=== PATIENT | female | born 1990 | race American Indian/Alaskan Native ===

== ENCOUNTER 2016-10-25 14:17 | Emergency (ER) | payer SELFPAY ==
[2016-10-25 14:36] VITALS: BP 127/80
[2016-10-25] MEDS ORDERED: diphenhydrAMINE 50 MG/ML SDV IM ONE (15:18)
[2016-10-25] MEDS ORDERED: Ondansetron 4 MG Tab.DIS PO ONE (15:18)
[2016-10-25] MEDS ORDERED: Ketorolac 60 MG/2 ML SDV IM ONE (15:18)
[2016-10-25] MEDS ORDERED: Haloperidol Lactate 5 MG/ML SDV IM ONE (15:18)
--- NOTE | 2016-10-25 15:29 | EDM.PDOC ---
ED HPI GENERAL MEDICAL PROBLEM - General Chief Complaint: Headache Stated Complaint: FEVER Time Seen by Provider: 10/25/16 15:02 Source of Information: Reports: Patient History Limitations: Reports: No Limitations - History of Present Illness INITIAL COMMENTS - FREE TEXT/NARRATIVE: Patient is a 26 y/o female who presents to the E.D. c/o of bitemporal headache that started two days ago. States the headache is similar to previous migraine headache. Its currently rated a 10/10. Has felt warm with the headache. States she arrived to [place] to see her boyfriend three days ago from [place]. Denies recent trauma to head, worst headache of her life, n/v, sob, cp, n/t, abdominal pain, ear pain, sinus congestion, cough, sore throat,dysuria, diarrhea, or weakness, alcohol use, or recreational drug use. She denies being since she had a tubal ligation. She does have a past medical history of headaches and is currently on no medications other than [id number]. Treatments BIT SHAVER: Reports: Acetaminophen Other Treatments BIT SHAVER: ibuprofen Headache Pain Score (Numeric/FACES): 10 - Related Data Allergies Allergy/AdvReac Type Severity Reaction Status Date / Time No Known Allergies Allergy Verified 10/25/16 15:35 Home Meds: Home Meds . [No Known Home Meds] 10/25/16 [History] Past Medical History - Past Health History Medical/Surgical History: Denies Medical/Surgical History Social & Family History - Tobacco Use Smoking Status *Q: Never Smoker - Caffeine Use Caffeine Use: Reports: None - Recreational Drug Use Recreational Drug Use: Yes Drug Use in Last 12 Months: Yes Recreational Drug Type: Reports: Methamphetamine Other Recreational Drug Type: pt states she hasnt used in the past 5 months ED ROS GENERAL - Review of Systems Review Of Systems: ROS reveals no pertinent complaints other than HPI. - Physical Exam Exam: See Below Exam Limited By: No Limitations General Appearance: Alert, WD/WN, Mild Distress Eye Exam: Bilateral Eye: EOMI, PERRL Ears: Normal External Exam, Normal Canal, Hearing Grossly Normal Nose: Normal Inspection Throat/Mouth: Normal Inspection, Normal Oropharynx, Normal Voice, No Airway Compromise Head Exam: Atraumatic, Normocephalic Neck: Normal Inspection, Supple, Non-Tender, Full Range of Motion Respiratory/Chest: No Respiratory Distress, Lungs Clear, Normal Breath Sounds, No Accessory Muscle Use, Chest Non-Tender Cardiovascular: Normal Peripheral Pulses, Regular Rate, Rhythm, No Murmur GI/Abdominal: Normal Bowel Sounds, Soft, Non-Tender, No Organomegaly, No Distention Neuro Exam (Abbreviated): Alert, Oriented, CN II-XII Intact, Normal Cognition, No Motor/Sensory Deficits, Other (cerebellar function intact. No weakness discrepanciesto upper and lower extremities. No facial droopor slurred speech noted.) Back Exam: Normal Inspection Extremities: Normal Inspection, Non-Tender, No Pedal Edema Psychiatric: Normal Affect, Normal Mood Skin Exam: Warm, Dry, Intact, Normal Color, No Rash Course - Vital Signs Last Recorded V/S: Last Vital Signs Temp 98.0 F 10/25/16 14:32 Pulse 100 10/25/16 14:32 Resp 16 10/25/16 14:32 BP 127/80 10/25/16 14:32 Pulse Ox 97 10/25/16 14:32 - Orders/Labs/Meds Meds: Medications Discontinued Medications Generic Name Dose Route Start Last Admin Trade Name Mary Ann PRN Reason Stop Dose Admin Diphenhydramine HCl 50 mg 10/25/16 15:18 10/25/16 15:39 Benadryl IM 10/25/16 15:19 50 mg ONETIME ONE Administration Haloperidol Lactate 7.5 mg 10/25/16 15:18 10/25/16 15:40 Haldol IM 10/25/16 15:19 7.5 mg ONETIME ONE Administration Ketorolac Tromethamine 60 mg 10/25/16 15:18 10/25/16 15:37 Toradol IM 10/25/16 15:19 60 mg ONETIME ONE Administration Ondansetron HCl 4 mg 10/25/16 15:18 10/25/16 15:36 Zofran Odt PO 10/25/16 15:19 4 mg ONETIME ONE Administration - Re-Assessments/Exams Free Text/Narrative Re-Assessment/Exam: Examination did not elicit any concerning findings. Neurological exam was completely normal. Believe headache to be a tension-type headache with signs and symptoms present. Ordered Haldol 7.5 mg IM, Benadryl 50 mg IM, Toradol 60 mg IM, and Zofran 4 mg ODT. 10/25/16 16:42 on reevaluation patient's headache has decreased significantly. Currently a 5 out of 10. She is ready to be discharged home. Discharge instructions as documented. Departure - Departure Time of Disposition: 16:43 Disposition: Home, Self-Care 01 Condition: Good Clinical Impression: Acute tension headache Qualifiers: Intractability: not intractable Qualified Code(s): G44.209 - Tension-type headache, unspecified, not intractable - Discharge Information Instructions: General Headache Without Cause, [id number] Forms: ED Department Discharge Additional Instructions: Headache currently experiencing is a tension headache. Continue taking ibuprofen 600 mg every 6 hours and Tylenol 650 mg every 6 hours in alternating fashion. Push the fluids. Ensure adequate rest. Suggest going home this evening and finding a dark room to sleep in with no distractions. No driving this evening since receiving a sedative medication while in the ED. Follow-up with your PCP as needed. Return to the ED for any new or worsening symptoms.
== END 2016-10-25 16:56 | disposition home or self-care (01) ==
LOC: JD.ED 14:17
DX: G44.209 Tension-type headache, unspecified, not intractable (principal)
CPT/HCPCS: 96372; 99284; A9270; J1200; J1630; J1885; 99283

== ENCOUNTER 2017-01-26 09:43 | Emergency (ER) | payer SELFPAY ==
[2017-01-26 09:57] VITALS: BP 134/87
--- NOTE | 2017-01-26 10:19 | EDM.PDOC ---
ED HPI GENERAL MEDICAL PROBLEM - General Chief Complaint: Cardiovascular Problem Stated Complaint: CHEST PAIN Time Seen by Provider: 01/26/17 09:50 Source of Information: Reports: Patient, RN Notes Reviewed History Limitations: Reports: No Limitations - History of Present Illness INITIAL COMMENTS - FREE TEXT/NARRATIVE: The patient states that she took an [id number] sleep aid (she does not know the name of it) last night around 21:00. She states that she woke around 22:00 with a sensation of her heart pounding and shortness of breath. She also reports retrosternal chest pain, although she has been experiencing this for the past 8 months, and it was no different last night. She denied having lightheadedness, tingling or numbness. The palpitations persisted for about 10 minutes before resolving, and have not recurred since. The patient states that she has had similar symptoms in the past, particularly if she takes anything that "affects my heart", such as various medications, Coca -Cola, etc. 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 Here in the ED, the patient's oxygen saturation is noted to be 100% on room air. She reports feeling anxious and dyspneic. The patient states that she recently moved here from [place], and does not have a PCP. - Related Data Allergies Allergy/AdvReac Type Severity Reaction Status Date / Time No Known Allergies Allergy Verified 01/26/17 09:51 Home Meds: Home Meds . 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: Psychiatric History: Reports: Addiction (methamphetamine), Anxiety (untreated), Depression (untreated) Endocrine/Metabolic History: Reports: Obesity/BMI 30+ - Past Surgical History GI Surgical History: Reports: Appendectomy Female Surgical History: Reports: Tubal Ligation Social & Family History - Tobacco Use Smoking Status *Q: Never Smoker Second Hand Smoke Exposure: No - Caffeine Use Caffeine Use: Reports: None - Alcohol Use Alcohol Use History: Yes Alcohol Use Frequency: Socially - Recreational Drug Use Recreational Drug Use: Yes Drug Use in Last 12 Months: Yes Recreational Drug Type: Reports: Methamphetamine (last around Apr 2016) Other Recreational Drug Type: pt states she hasnt used in the past 5 months - Living Situation & Occupation Living situation: Reports: Single (engaged), with Significant Other (Fiance), with Family (10-year-old child) Occupation: Employed ([employer]) ED ROS GENERAL - Review of Systems Review Of Systems: See Below Constitutional: Reports: Chills HEENT: Reports: No Symptoms Respiratory: Reports: Shortness of Breath Cardiovascular: Reports: Chest Pain (as per the HPI) Endocrine: Reports: No Symptoms GI/Abdominal: Reports: No Symptoms : Reports: No Symptoms Musculoskeletal: Reports: No Symptoms Skin: Reports: No Symptoms Neurological: Reports: No Symptoms Psychiatric: Reports: Anxiety Hematologic/Lymphatic: Reports: No Symptoms Immunologic: Reports: No Symptoms ED EXAM, GENERAL - Physical Exam Exam: See Below Exam Limited By: No Limitations General Appearance: Alert, WD/WN, Anxious Eye Exam: Bilateral Eye: Normal Inspection Ears: Normal External Exam, Hearing Grossly Normal Nose: Normal Inspection, No Blood Throat/Mouth: Normal Inspection, Normal Lips, Normal Voice, No Airway Compromise Head: Atraumatic, Normocephalic Neck: Normal Inspection, Full Range of Motion Respiratory/Chest: No Respiratory Distress, Lungs Clear, Normal Breath Sounds, No Accessory Muscle Use Cardiovascular: Normal Peripheral Pulses, Regular Rate, Rhythm, No Gallop, No JVD, No Murmur, No Rub Peripheral Pulses: 4+: Radial (L), Radial (R) GI/Abdominal: Normal Bowel Sounds, Soft, Non-Tender, No Organomegaly, No Distention, No Abnormal Bruit, No Mass, Other (Obese) (Female) Exam: Deferred Rectal (Female) Exam: Deferred Back Exam: Normal Inspection, Full Range of Motion, NT Extremities: Normal Inspection, Normal Range of Motion, No Pedal Edema, Normal Capillary Refill Neurological: Alert, Oriented, Normal Cognition, No Motor/Sensory Deficits Psychiatric: Anxious Skin Exam: Warm, Dry, Intact, Normal Color, No Rash EKG INTERPRETATION EKG Date: 01/26/17 Time: 10:51 Rhythm: NSR Rate (Beats/Min): 81 [place]: Normal P-Wave: Present QRS: Normal ST-T: Normal QT: Normal Comparison: NA - No Prior EKG Course - Vital Signs Last Recorded V/S: Last Vital Signs Temp 37.1 C 01/26/17 09:51 Pulse 97 01/26/17 09:51 Resp 13 01/26/17 09:51 BP 134/87 01/26/17 09:51 Pulse Ox 100 01/26/17 09:51 - Orders/Labs/Meds Labs: Laboratory Tests 01/26/17 01/26/17 01/26/17 Range/Units 10:12 10:45 10:45 WBC 6.64 (3.98-10.04) K/mm3 RBC 4.83 (3.98-5.22) M/mm3 Hgb 13.9 (11.2-15.7) gm/L Hct 41.1 (34.1-44.9) % MCV 85.1 (79.4-94.8) fl MCH 28.8 (25.6-32.2) pg MCHC 33.8 (32.2-35.5) g/dl RDW Std Deviation 40.5 (36.4-46.3) fL Plt Count 367 (182-369) K/mm3 MPV 9.8 (9.4-12.3) fl Neutrophils % (Manual) 68 H (40-60) % Band Neutrophils % 1 (0-10) % Lymphocytes % (Manual) 27 (20-40) % Atypical Lymphs % 0 % Monocytes % (Manual) 2 (2-10) % Eosinophils % (Manual) 2 (0.7-5.8) % Basophils % (Manual) 0 L (0.1-1.2) Platelet Estimate Adequate RBC Morph Comment Normal PT 11.0 (8.0-13.0) SECONDS INR 1.01 APTT 30 (22-36) SECONDS D-Dimer, Quantitative 0.32 (0.19-0.59) mg/L Puncture Site Rt radial ABG pH 7.40 (7.35-7.45) ABG pCO2 35.2 (35.0-45.0) mmHg ABG pO2 64.0 L (80.0-100.0) mmHg ABG HCO3 21.3 L (22.0-26.0) meq/L ABG O2 Saturation 92.7 L (96.0-97.0) % ABG Base Excess -2.4 L (-2-2.0) Rogelio Test Positive A-a Gradient 27 mmHg O2 Delivery Device Room air FiO2 21.00 (21.00-100.00) % Sodium (136-145) mEq/L Potassium (3.5-5.1) mEq/L Chloride (98-107) mEq/L Carbon Dioxide (21-32) mEq/L Anion Gap (5-15) BUN (7-18) mg/dL Creatinine (0.55-1.02) mg/dL Est Cr Clr Drug Dosing mL/min Estimated GFR (MDRD) (>60) mL/min BUN/Creatinine Ratio (14-18) Glucose (74-106) mg/dL Calcium (8.5-10.1) mg/dL Magnesium (1.8-2.4) mg/dl Total Bilirubin (0.2-1.0) mg/dL AST (15-37) U/L ALT (14-59) U/L Alkaline Phosphatase (46-116) U/L Troponin I (0.00-0.056) ng/mL NT-Pro-B Natriuret Pep (0-125) pg/mL Total Protein (6.4-8.2) g/dl Albumin (3.4-5.0) g/dl Globulin gm/dL Albumin/Globulin Ratio (1-2) TSH 3rd Generation (0.358-3.74) uIU/mL Urine Color (Yellow) Urine Appearance (Clear) Urine pH (5.0-8.0) Ur Specific Burgess (1.005-1.030) Urine Protein (Negative) Urine Glucose (UA) (Negative) Urine Ketones (Negative) Urine Occult Blood (Negative) Urine Nitrite (Negative) Urine Bilirubin (Negative) Urine Urobilinogen (0.2-1.0) Ur Leukocyte Esterase (Negative) Urine RBC (0-5) /hpf Urine WBC (0-5) /hpf Ur Epithelial Cells (0-5) /hpf Urine Bacteria (FEW) /hpf Urine Mucus (FEW) /hpf Urine HCG, Qual (NEGATIVE) 01/26/17 01/26/17 01/26/17 Range/Units 10:45 11:15 11:15 WBC (3.98-10.04) K/mm3 RBC (3.98-5.22) M/mm3 Hgb (11.2-15.7) gm/L Hct (34.1-44.9) % MCV (79.4-94.8) fl MCH (25.6-32.2) pg MCHC (32.2-35.5) g/dl RDW Std Deviation (36.4-46.3) fL Plt Count (182-369) K/mm3 MPV (9.4-12.3) fl Neutrophils % (Manual) (40-60) % Band Neutrophils % (0-10) % Lymphocytes % (Manual) (20-40) % Atypical Lymphs % % Monocytes % (Manual) (2-10) % Eosinophils % (Manual) (0.7-5.8) % Basophils % (Manual) (0.1-1.2) Platelet Estimate RBC Morph Comment PT (8.0-13.0) SECONDS INR APTT (22-36) SECONDS D-Dimer, Quantitative (0.19-0.59) mg/L Puncture Site ABG pH (7.35-7.45) ABG pCO2 (35.0-45.0) mmHg ABG pO2 (80.0-100.0) mmHg ABG HCO3 (22.0-26.0) meq/L ABG O2 Saturation (96.0-97.0) % ABG Base Excess (-2-2.0) Rogelio Test A-a Gradient mmHg O2 Delivery Device FiO2 (21.00-100.00) % Sodium 139 (136-145) mEq/L Potassium 3.6 (3.5-5.1) mEq/L Chloride 105 (98-107) mEq/L Carbon Dioxide 26 (21-32) mEq/L Anion Gap 11.6 (5-15) BUN 13 (7-18) mg/dL Creatinine 0.6 (0.55-1.02) mg/dL Est Cr Clr Drug Dosing 105.34 mL/min Estimated GFR (MDRD) > 60 (>60) mL/min BUN/Creatinine Ratio 21.7 H (14-18) Glucose 78 (74-106) mg/dL Calcium 9.0 (8.5-10.1) mg/dL Magnesium 2.0 (1.8-2.4) mg/dl Total Bilirubin 0.8 (0.2-1.0) mg/dL AST 19 (15-37) U/L ALT 41 (14-59) U/L Alkaline Phosphatase 83 (46-116) U/L Troponin I < 0.017 (0.00-0.056) ng/mL NT-Pro-B Natriuret Pep 13 (0-125) pg/mL Total Protein 8.2 (6.4-8.2) g/dl Albumin 3.8 (3.4-5.0) g/dl Globulin 4.4 gm/dL Albumin/Globulin Ratio 0.9 L (1-2) TSH 3rd Generation 0.705 (0.358-3.74) uIU/mL Urine Color Yellow (Yellow) Urine Appearance Clear (Clear) Urine pH 7.0 (5.0-8.0) Ur Specific Burgess 1.025 (1.005-1.030) Urine Protein Negative (Negative) Urine Glucose (UA) Negative (Negative) Urine Ketones Negative (Negative) Urine Occult Blood Negative (Negative) Urine Nitrite Negative (Negative) Urine Bilirubin Negative (Negative) Urine Urobilinogen 0.2 (0.2-1.0) Ur Leukocyte Esterase Negative (Negative) Urine RBC 0-5 (0-5) /hpf Urine WBC 0-5 (0-5) /hpf Ur Epithelial Cells 0-5 (0-5) /hpf Urine Bacteria Rare (FEW) /hpf Urine Mucus Not seen (FEW) /hpf Urine HCG, Qual Negative (NEGATIVE) - Re-Assessments/Exams Free Text/Narrative Re-Assessment/Exam: 01/26/17 10:32 Two-view chest radiograph appears to be grossly unremarkable. Poor inspiratory effort. Cardiac silhouette is within normal limits. No pulmonary vascular congestion. No pleural effusions. No focal infiltrate. No pneumothorax. Formal read per the Radiologist pending. 01/26/17 11:51 Test results discussed with the patient. Today's workup is entirely unremarkable , with the exception of her ABG, which appears to demonstrate a chronic respiratory alkalosis, most likely due to anxiety. I will refer the patient to the clinic for follow-up, where she can discuss long-term treatment options. It is also possible that the patient has intermittent dysrhythmias - she can also discuss outpatient cardiac monitoring. Departure - Departure Time of Disposition: 11:52 Disposition: Home, Self-Care 01 Condition: Good Clinical Impression: Palpitations, Anxiety Instructions: Palpitations, [id number] Referrals: PCP,None [Primary Care Provider] - Gabriel Johnson [Physician] - Janet Zuleta MD [Physician] - Forms: ED Department Discharge Additional Instructions: You were seen in the emergency room for the sensation of your heart pounding, along with shortness of breath and chest pain. Workup in the ER included blood work, an arterial blood gas, a urinalysis and urine test, an ECG, and a chest x-ray. Your entire workup was unremarkable, with the exception of your arterial blood gas indicating chronic hyperventilation, likely due to anxiety. We recommend that you follow-up with either Dr. Johnson or Dr. Zuleta in the clinic, to discuss treatment options for anxiety. They may also want to set you up with outpatient heart monitoring. If any other problems, please do not hesitate to return to the ER.
--- NOTE | 2017-01-27 07:38 | CR ---
Chest: Two views of the chest were obtained. Comparison: No prior chest x-ray. Heart size and mediastinum are normal. Lungs are clear. Bony structures are within normal limits for the patient's age. Impression: 1. Nothing acute is identified on two-view chest x-ray. Diagnostic code #1
== END 2017-01-26 12:15 | disposition home or self-care (01) ==
LOC: JD.ED 09:43
DX: F41.9 Anxiety disorder, unspecified (principal)
CPT/HCPCS: 36415; 36600; 71020; 71020-26; 80053; 81001; 81025; 82803; 83735; 83880; 84443; 84484; 85025; 85379; 85610; 85730; 93005; 93010; 99284; 99285-25

== ENCOUNTER 2019-04-26 09:47 | Emergency (ER) | payer SELFPAY ==
[2019-04-26] MEDS ORDERED: Sodium Chloride 0.9% 10 ML Syringe FLUSH PRN (10:10)
[2019-04-26] MEDS ORDERED: Metoclopramide 10 MG/2 ML SDV IVPUSH ONE (10:11)
[2019-04-26] MEDS ORDERED: diphenhydrAMINE 50 MG/ML SDV IVPUSH ONE (10:11)
[2019-04-26] MEDS ORDERED: Ketorolac 30 MG/ML SDV IVPUSH ONE (10:11)
[2019-04-26] MEDS ORDERED: Sodium Chloride 0.9% 1,000 ML IV ONE (10:11)
--- NOTE | 2019-04-26 10:13 | EDM.PDOC ---
ED HPI GENERAL MEDICAL PROBLEM - General Chief Complaint: Headache Stated Complaint: MIGRAINE/VOMITING/SHAKING Time Seen by Provider: 04/26/19 10:02 Source of Information: Reports: Patient History Limitations: Reports: No Limitations - History of Present Illness INITIAL COMMENTS - FREE TEXT/NARRATIVE: The patient presents with a migraine. This started yesterday. She has photophobia, nausea and vomiting. She has no numbness or weakness. She has no fever, chills, or cough. She has a history of migraines and this one is a bad one. She has no vision changes. Onset: Gradual Duration: Day(s): Location: Reports: Head Quality: Reports: Sharp Severity: Severe Improves with: Reports: None Worsens with: Reports: None Associated Symptoms: Reports: Headaches, Nausea/Vomiting. 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: Psychiatric History: Reports: Addiction (methamphetamine), Anxiety (untreated), Depression (untreated) Endocrine/Metabolic History: Reports: Obesity/BMI 30+ - Past Surgical History GI Surgical History: Reports: Appendectomy Female Surgical History: Reports: Tubal Ligation Social & Family History - Caffeine Use Caffeine Use: Reports: None - Living Situation & Occupation Living situation: Reports: Single (engaged), with Significant Other (Fiance), with Family (10-year-old child) Occupation: Employed ([employer]) ED ROS GENERAL - Review of Systems Review Of Systems: See Below Constitutional: Reports: No Symptoms HEENT: Reports: No Symptoms Respiratory: Reports: No Symptoms Cardiovascular: Reports: No Symptoms Endocrine: Reports: No Symptoms GI/Abdominal: Reports: Nausea, Vomiting. Denies: Abdominal Pain Neurological: Reports: Headache - Physical Exam Exam: See Below Exam Limited By: No Limitations General Appearance: Alert, No Apparent Distress Ears: Normal External Exam Nose: Normal Inspection Head Exam: Atraumatic, Normocephalic Neck: Normal Inspection, Supple, Non-Tender Respiratory/Chest: No Respiratory Distress, Lungs Clear, Normal Breath Sounds Cardiovascular: Regular Rate, Rhythm, No Edema, No Murmur GI/Abdominal: Soft, Non-Tender, No Organomegaly, No Mass Neuro Exam (Abbreviated): Alert, Oriented, No Motor/Sensory Deficits Course - Vital Signs Last Recorded V/S: Last Vital Signs Temp Pulse 92 04/26/19 09:57 Resp 18 04/26/19 09:57 BP 123/81 04/26/19 09:57 Pulse Ox 97 04/26/19 09:57 - Orders/Labs/Meds Orders: Active Orders 24 hr Category Date Time Status Peripheral IV Care [RC] . DIRECTED Care 04/26/19 10:11 Active Sodium Chloride 0.9% [Normal Saline] 1,000 ml Med 04/26/19 10:11 Active IV ONETIME Sodium Chloride 0.9% [Saline Flush] Med 04/26/19 10:10 Active 10 ml FLUSH ASDIRECTED PRN Peripheral IV Insertion Adult [OM.PC] Routine Oth 04/26/19 10:10 Ordered Medication Orders Sodium Chloride (Normal Saline) 1,000 mls @ 1,000 mls/hr IV ONETIME ONE Stop: 04/26/19 11:10 Last Admin: 04/26/19 10:24 Dose: 1,000 mls/hr Sodium Chloride (Saline Flush) 10 ml FLUSH ASDIRECTED PRN PRN Reason: Keep Vein Open Last Admin: 04/26/19 10:26 Dose: 10 ml Meds: Medications Generic Name Dose Route Start Last Admin Trade Name Freq PRN Reason Stop Dose Admin Sodium Chloride 1,000 mls @ 1,000 mls/hr 04/26/19 10:11 04/26/19 10:24 Normal Saline IV 04/26/19 11:10 1,000 mls/hr ONETIME ONE Administration Sodium Chloride 10 ml 04/26/19 10:10 04/26/19 10:26 Saline Flush FLUSH 10 ml ASDIRECTED PRN Administration Keep Vein Open Discontinued Medications Generic Name Dose Route Start Last Admin Trade Name Freq PRN Reason Stop Dose Admin Diphenhydramine HCl 50 mg 04/26/19 10:11 04/26/19 10:24 Benadryl IVPUSH 04/26/19 10:12 50 mg ONETIME ONE Administration Ketorolac Tromethamine 30 mg 04/26/19 10:11 04/26/19 10:24 Toradol IVPUSH 04/26/19 10:12 30 mg ONETIME ONE Administration Metoclopramide HCl 10 mg 04/26/19 10:11 04/26/19 10:24 Reglan IVPUSH 04/26/19 10:12 10 mg ONETIME ONE Administration - Re-Assessments/Exams Free Text/Narrative Re-Assessment/Exam: 04/26/19 10:40 I ordered an IV NS 1L bolus, reglan 10mg IV, toradol 30mg IV, and benadryl 50mg IV. 04/26/19 11:04 She feels better. She would like to go. I will discharge her home. Departure - Departure Time of Disposition: 11:05 Disposition: Home, Self-Care 01 Condition: Good Clinical Impression: Migraine - Discharge Information *PRESCRIPTION DRUG MONITORING PROGRAM REVIEWED*: Not Applicable *COPY OF PRESCRIPTION DRUG MONITORING REPORT IN PATIENT JOSE: Not Applicable Referrals: PCP,None [Primary Care Provider] - Forms: ED Department Discharge, ED Return to Work/School Form Additional Instructions: Go home and rest in a quiet dark place. Take tylenol or motrin for any headache. Please return if you are worse. Sepsis Event Note - Evaluation Sepsis Screening Result: No Definite Risk - Focused Exam Vital Signs: Vital Signs Pulse Resp BP Pulse Ox 04/26/19 09:57 92 18 123/81 97 Date Exam was Performed: 04/26/19 Time Exam was Performed: 11:04 - My Orders Last 24 Hours: My Active Orders 04/26/19 10:10 Sodium Chloride 0.9% [Saline Flush] 10 ml FLUSH ASDIRECTED PRN Peripheral IV Insertion Adult [OM.PC] Routine 04/26/19 10:11 Peripheral IV Care [RC] . DIRECTED Sodium Chloride 0.9% [Normal Saline] 1,000 ml IV ONETIME - Assessment/Plan Last 24 Hours: My Active Orders 04/26/19 10:10 Sodium Chloride 0.9% [Saline Flush] 10 ml FLUSH ASDIRECTED PRN Peripheral IV Insertion Adult [OM.PC] Routine 04/26/19 10:11 Peripheral IV Care [RC] . DIRECTED Sodium Chloride 0.9% [Normal Saline] 1,000 ml IV ONETIME
[2019-04-26 11:23] VITALS: BP 119/74; PULSE 93
== END 2019-04-26 11:20 | disposition home or self-care (01) ==
LOC: JD.ED 09:47
DX: G43.909 Migraine, unspecified, not intractable, without status migrainosus (principal); E66.9 Obesity, unspecified; Z68.41 Body mass index [BMI] 40.0-44.9, adult
CPT/HCPCS: 96361; 96374; 96375; 99284; J1200; J1885; J2765; J7030; 99283